=== PATIENT | female | born 1995 | race Asian ===

== ENCOUNTER 2021-02-16 21:53 | Emergency (ER) | payer SELFPAY ==
[~2021-02-16] VITALS: Ht 154.9 cm; Wt 45.4 kg
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
--- NOTE | 2021-02-17 00:04 | NUR ---
C[employer]ICE [employer]PH[employer]ER [id number] FROM [employer] INFROMED ME THAT THE PT WILL NEED TO GO [employer] REPORT HERSELF.
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
[2021-02-17] MEDS ORDERED: BACI/NEOM/POLY B OINT PKT 1 UDPKT PACKET TP ONE (00:30)
[2021-02-17] MEDS ORDERED: IBUP-1955 PO (00:44)
[2021-02-17] MEDS ORDERED: BACI/NEOM/POLY B OINT PKT 1 UDPKT PACKET ONE (00:49)
[2021-02-17] MEDS ORDERED: TDAP [DIPH/PERTUSSIS/TET] 0.5 ML VIAL IM ONE ×2 (01:06→01:30)
--- NOTE | 2021-02-17 01:57 | NUR ---
Patient discharged to home in stable condition. Written and verbal after care instructions given. Patient verbalizes understanding of instruction. VSS.
[2021-02-17 01:59] VITALS: BP 97/65
== END 2021-02-17 01:37 | disposition home or self-care (01) ==
LOC: ER 22:00
DX: S80.212A Abrasion, left knee, initial encounter (principal); S80.211A Abrasion, right knee, initial encounter; S70.211A Abrasion, right hip, initial encounter; F17.210 Nicotine dependence, cigarettes, uncomplicated; W50.0XXA Accidental hit or strike by another person, initial encounter; Y93.89 Activity, other specified; Y92.89 Other specified places as the place of occurrence of the external cause; Y99.8 Other external cause status
CPT/HCPCS: 73502; 73564-TC; 90715